=== PATIENT | male | born 2000 | race Caucasian/White ===

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

== ENCOUNTER 2021-10-02 14:46 | Emergency (ER) | payer MEDICAID ==
[~2021-10-02] VITALS: Ht 170.2 cm; Wt 63.6 kg
[~2021-10-02 14:46] MED LIST changes: -NEBU1KIT MC
[2021-10-02 15:07] VITALS: BP 135/70
[2021-10-02 15:27] LABS: COVID AG,FIA SOURCE NASAL SWAB
[2021-10-02] MEDS ORDERED: ALBU8HFA IH (18:04)
== END 2021-10-02 18:20 | disposition left against medical advice (07) ==
LOC: EMS 14:46
DX: R53.1 Weakness (principal); R51.9 Headache, unspecified; Z53.21 Procedure and treatment not carried out due to patient leaving prior to being seen by health care provider